=== PATIENT | male | born 1985 | race African-American/Black ===

== ENCOUNTER 2022-03-06 09:13 | Emergency (ER) | payer SELFPAY ==
[~2022-03-06] VITALS: Ht 170.2 cm; Wt 119.3 kg
[2022-03-06 09:21] VITALS: BP 176/137
--- NOTE | 2022-03-06 10:48 | NUR ---
PT C/O MID ABDOMINAL PAIN WITH N/D X2 DAYS. C/O 01/15 AT THIS TIME
[2022-03-06] MEDS ORDERED: SUCRALFATE 1 GM TAB PO SCH (10:50)
[2022-03-06] MEDS ORDERED: ALUMINUM HYD/MAG/SIMETHICONE 30 ML UDC PO ONE (10:50)
[2022-03-06 12:42] VITALS: BP 157/99
== END 2022-03-06 12:43 | disposition home or self-care (01) ==
LOC: MED 09:13
DX: R19.7 Diarrhea, unspecified (principal); R10.9 Unspecified abdominal pain
CPT/HCPCS: 99283

== ENCOUNTER 2022-03-17 19:23 | Emergency (ER) | payer SELFPAY ==
[~2022-03-17] VITALS: Ht 167.6 cm; Wt 123.4 kg
[2022-03-17 19:57] VITALS: BP 170/103
--- NOTE | 2022-03-17 20:02 | NUR ---
PT TAKEN TO LOBBY, WAITING FOR BED.
--- NOTE | 2022-03-17 20:11 | NUR ---
pt ambulated to bed 07
--- NOTE | 2022-03-17 20:48 | NUR ---
PATRICK CONNELLY AT BEDSIDE .
[2022-03-17] MEDS ORDERED: cefTRIAXone 500 MG in LIDOCAINE MPF 1% 1 ML IM ONE (20:55)
[2022-03-17] MEDS ORDERED: cefTRIAXone 500 MG VIAL ONE (21:04)
[2022-03-17] MEDS ORDERED: LIDOCAINE MPF 1% 5 ML ONE (21:04)
[2022-03-17 21:32] LABS: APPEARANCE,URINE CLEAR (CLEAR); BILIRUBIN,URINE NEGATIVE (NEGATIVE); BLOOD, URINE NEGATIVE (NEGATIVE); COLOR,URINE YELLOW (YELLOW); LEUKOCYTE ESTERASE ,URINE NEGATIVE (NEGATIVE); NITRITE, URINE NEGATIVE (NEGATIVE); UGLUCOSE NEGATIVE (NEGATIVE)
[2022-03-17] MEDS ORDERED: DOXY-690 PO (21:54)
--- NOTE | 2022-03-17 21:59 | NUR ---
Patient discharged with v/s stable. Written and verbal after care instructions given and explained. Patient alert, oriented and verbalized understanding of instructions. Ambulatory with steady gait. All questions addressed prior to discharge. ID band removed. Patient advised to follow up with PMD. Rx of DOXYCYLINE given. Patient educated on indication of medication including possible reaction and side effects. Opportunity to ask questions provided and answered.
--- NOTE | 2022-03-17 22:01 | NUR ---
The patient's care was reviewed and supervised by Izzy Shankar RN.
== END 2022-03-17 21:59 | disposition home or self-care (01) ==
LOC: MED 19:23
DX: R31.9 Hematuria, unspecified (principal); I10 Essential (primary) hypertension
CPT/HCPCS: 81003; 96372; 99283; J0696; J2001; 36415; 87491

== ENCOUNTER 2022-04-18 16:28 | Emergency (ER) | payer SELFPAY ==
[~2022-04-18] VITALS: Ht 170.2 cm; Wt 124.1 kg
[~2022-04-18 16:28] MED LIST: DOXY-690 PO
[2022-04-18 16:34] VITALS: BP 156/107
[2022-04-18] MEDS ORDERED: NAPR-54 PO (19:18)
[2022-04-18] MEDS ORDERED: DOXY-690 PO (19:18)
[2022-04-18] MEDS ORDERED: CEFI400C PO (19:18)
[2022-04-18] MEDS ORDERED: ACET-8386 PO (19:18)
== END 2022-04-18 19:33 | disposition home or self-care (01) ==
LOC: MED 16:28
DX: N45.1 Epididymitis (principal); I10 Essential (primary) hypertension; Z88.0 Allergy status to penicillin; Z79.899 Other long term (current) drug therapy
CPT/HCPCS: 76870; 99284; Q0092

== ENCOUNTER 2022-06-25 12:31 | Emergency (ER) | payer OTHER ==
[~2022-06-25] VITALS: Ht 165.1 cm; Wt 122.0 kg
[~2022-06-25 12:31] MED LIST changes: +ACET-8386 PO; +CEFI400C PO; +NAPR-54 PO
[2022-06-25 12:33] VITALS: BP 149/96
--- NOTE | 2022-06-25 12:39 | NUR ---
PT AMN TO BED 11.
--- NOTE | 2022-06-25 12:45 | NUR ---
36 y/o male c/o headache pain x 2 days s/p fall. States tripped over toys at home hitting head on right side, denies LOC. Denies taking medication for pain, denies fever, chills, blurred vision, cp, sob or pain anywhere else. Pain reported at 4/10, intermittent. Hx of HTN although non-compliant with medication.
--- NOTE | 2022-06-25 12:55 | NUR ---
KARINA Willson at bedside for evaluation
[2022-06-25] MEDS ORDERED: FLONAS NS (13:14)
[2022-06-25] MEDS ORDERED: IBUP-2213 PO (13:14)
[2022-06-25] MEDS ORDERED: CYCL-711 PO (13:14)
[2022-06-25 13:46] VITALS: BP 149/96
--- NOTE | 2022-06-25 13:47 | NUR ---
Patient discharged with v/s stable. Written and verbal after care instructions given and explained. Patient alert, oriented and verbalized understanding of instructions. Ambulatory with steady gait. All questions addressed prior to discharge. ID band removed. Patient advised to follow up with PMD. Rx of cyclobenzaprine, flonase, ibuprofen (sent) given. Patient educated on indication of medication including possible reaction and side effects. Opportunity to ask questions provided and answered.
== END 2022-06-25 13:47 | disposition home or self-care (01) ==
LOC: MED 12:31
DX: S09.90XA Unspecified injury of head, initial encounter (principal); J31.0 Chronic rhinitis; I10 Essential (primary) hypertension; Z88.0 Allergy status to penicillin; W18.30XA Fall on same level, unspecified, initial encounter; Y93.89 Activity, other specified; Y92.89 Other specified places as the place of occurrence of the external cause; Y99.8 Other external cause status
CPT/HCPCS: 99283